=== PATIENT | female | born 1960 | race Hispanic/Latino ===

== ENCOUNTER 2016-12-06 15:09 | Outpatient (CLI) | payer OTHER ==
--- NOTE | 2016-12-06 16:54 | XRay Report ---
RIGHT ANKLE RADIOGRAPHS INDICATION: Pain, edema. COMPARISON: None similar at this institution. FINDINGS: AP, lateral and oblique right ankle radiographs demonstrate intact mortise, malleoli and talar dome contour. Normal soft tissues. At least 2 possible osteotomy screws noted along the first metatarsal distally as also distal amputation of the fifth metatarsal. CONCLUSION: No acute radiographic abnormality with few postsurgical changes of the foot, as above. Thank you for the opportunity to participate in this patient's care.
--- NOTE | 2016-12-07 08:43 | XRay Report ---
RIGHT FOOT RADIOGRAPHS INDICATION: Pain, edema. COMPARISON: None similar. FINDINGS: AP, lateral and oblique right foot radiographs demonstrate first metatarsal osteotomy changes with 2 threaded screws distally. Partial resection of the fifth metatarsal distally. Intact remainder bony appearance and soft tissues. CONCLUSION: No acute right foot bony abnormality with first and fifth metatarsal postsurgical changes noted, as above. Thank you for the opportunity to participate in this patient's care.
--- NOTE | 2016-12-07 08:47 | XRay Report ---
CERVICAL SPINE RADIOGRAPHS INDICATION: Cervicalgia, status post fusion. COMPARISON: None similar. FINDINGS: AP, lateral, oblique and open-mouth views of the cervical spine demonstrate much obscured dens due to overlying skull. Symmetric lateral masses. Numerous radiopaque dental material. Slight cervical kyphosis with C4-C7 fusion and mild degenerative spurring. No significant foraminal narrowing suspected. Normal predental space and prevertebral soft tissues. Preserved airway. Clear imaged lung apices. CONCLUSION: No acute cervical spine radiographic abnormality with C4-C7 fusion changes, as above. Thank you for the opportunity to participate in this patient's care.
== END 2016-12-06 15:10 | disposition home or self-care (01) ==
LOC: XRAY 15:09
PROVIDERS: ATTEND Internal Medicine
DX: M40.292 Other kyphosis, cervical region (principal); M25.571 Pain in right ankle and joints of right foot; M25.474 Effusion, right foot
CPT/HCPCS: 72050